=== PATIENT | female | born 1980 | race Hispanic/Latino ===

== ENCOUNTER 2020-12-04 09:00 | Inpatient (IN) | payer SELFPAY ==
[~2020-12-04] VITALS: Ht 162.6 cm; Wt 90.3 kg
[2020-12-04] MEDS ORDERED: METHYLPREDNISOLONE SOD SUCC 125MG/2ML VIAL ONE (09:24)
[2020-12-04] MEDS ORDERED: NITROGLYCERIN 0.4 MG SL TAB SL PRN (10:30)
[2020-12-04] MEDS ORDERED: GUAIFENESIN-DM 200/20 MG 10 ML PO PRN (10:30)
[2020-12-04] MEDS ORDERED: MAG HYDROX/AL HYDROX/SIMETH ES 30 ML SUSP UDCUP PO PRN (10:30)
[2020-12-04] MEDS ORDERED: ACETAMINOPHEN 325 MG TAB PO PRN ×2 (10:30)
[2020-12-04] MEDS ORDERED: LACTULOSE 20 GM/30 ML UDCUP PO PRN (10:30)
[2020-12-04] MEDS ORDERED: ONDANSETRON HCL 4 MG/2 ML VIAL IV PRN (10:30)
[2020-12-04] MEDS ORDERED: DIPHENHYDRAMINE HCL 25 MG CAPSULE PO PRN (10:30)
[2020-12-04] MEDS ORDERED: DiphenhydrAMINE HCL 50 MG/ML VIAL IV PRN (10:30)
[2020-12-04 10:31] LABS: BASOPHILS % (AUTO) 0.5 % (0.0-5.0); EOSINOPHILS % (AUTO) 0.7 % (0.0-8.0); HEMATOCRIT 35.2 % (36-48); LYMPHOCYTES % (AUTO) 30.7 % (21.0-51.0); MEAN CORPUSCULAR HEMOGLOBIN 28.2 pg (27.0-33.0); MEAN CORPUSCULAR HGB CONC 33.5 g/dL (32.0-36.0); MEAN CORPUSCULAR VOLUME 84.2 fL (79-99); MONOCYTES % (AUTO) 4.1 % (3.0-13.0); NEUTROPHILS % (AUTO) 63.7 % (40.0-77.0); PLATELET COUNT (AUTO) 366 K/uL (130-400); RED BLOOD CELL COUNT(AUTO) 4.18 MIL/uL (4.00-5.50); RED CELL DISTRIBUTION WIDTH 12.8 % (11.0-15.5); WHITE BLOOD COUNT (AUTO) 11.6 K/uL (4.8-10.8)
[2020-12-04 10:44] LABS: ALBUMIN 3.2 g/dL (3.5-5.0); BILIRUBIN,TOTAL 0.3 mg/dL (0.2-1.0); CREATININE 0.6 mg/dL (0.5-1.5); TOTAL PROTEIN, SERUM 7.4 g/dL (6.0-8.3)
[2020-12-04 10:54] LABS: APPEARANCE,URINE CLEAR (CLEAR); BILIRUBIN,URINE NEGATIVE (NEGATIVE); COLOR,URINE YELLOW (YELLOW); GLUCOSE, URINE (UA) NEGATIVE (NEGATIVE); KETONES,URINE NEGATIVE (NEGATIVE); LEUKOCYTE ESTERASE ,URINE NEGATIVE (NEGATIVE); NITRATE,URINE NEGATIVE (NEGATIVE); OCCULT BLOOD,URINE MODERATE (NEGATIVE); PROTEIN,URINE NEGATIVE (NEGATIVE); UROBILINOGEN,URINE 0.2 mg/dL (0.2-1.0)
[2020-12-04 11:01] LABS: BACTERIA,URINE None Seen /HPF (None Seen); SQUAMOUS EPITHELIAL CELL,UR 0-2 /HPF (0-2); WBC,URINE None Seen /HPF (0-1)
[2020-12-04 12:05] VITALS: BP 160/79
[2020-12-04] MEDS: IBUPROFEN 800 MG TAB PO SCH ×3 (13:15→21:19)
[2020-12-04 16:08] VITALS: BP 142/73
[2020-12-04] MEDS: MORPHINE SULFATE 2 MG/ML 1ML SYG IV PRN (17:36)
[2020-12-04 19:45] VITALS: BP 142/83
[2020-12-04] MEDS: FAMOTIDINE/PF 20 MG/2 ML VIAL IV SCH (21:18)
[2020-12-04 23:32] VITALS: BP 130/78
[2020-12-05] VITALS (21 sets, daily range): BP systolic 118–160; BP diastolic 66–85
[2020-12-05] MEDS: IBUPROFEN 800 MG TAB PO SCH ×4 (03:56→22:39)
[2020-12-05 06:09] LABS: BASOPHILS % (AUTO) 0.2 % (0.0-5.0); CREATININE 0.7 mg/dL (0.5-1.5); HEMATOCRIT 35.3 % (36-48); MEAN CORPUSCULAR HEMOGLOBIN 27.2 pg (27.0-33.0); MEAN CORPUSCULAR VOLUME 84.9 fL (79-99); MONOCYTES % (AUTO) 4.8 % (3.0-13.0); NEUTROPHILS % (AUTO) 77.5 % (40.0-77.0); PLATELET COUNT (AUTO) 380 K/uL (130-400); POTASSIUM 4.8 mmol/L (3.5-5.1); RED BLOOD CELL COUNT(AUTO) 4.16 MIL/uL (4.00-5.50); RED CELL DISTRIBUTION WIDTH 12.8 % (11.0-15.5); WHITE BLOOD COUNT (AUTO) 16.8 K/uL (4.8-10.8)
[2020-12-05] MEDS: FAMOTIDINE/PF 20 MG/2 ML VIAL IV SCH ×2 (10:54→19:42)
[2020-12-05] MEDS ORDERED: DEXAMETHASONE SOD PHOSPHATE 10MG/ML 1ML VIAL ONE (12:26)
[2020-12-05] MEDS ORDERED: GLYCOPYRROLATE 1 MG/5 ML SYRINGE ONE (12:26)
[2020-12-05] MEDS ORDERED: PROPOFOL 10 MG/ML 20ML VIAL IV ONE (12:26)
[2020-12-05] MEDS ORDERED: NEOSTIGMINE 5MG/5ML SYR IV ONE (12:26)
[2020-12-05] MEDS ORDERED: MIDAZOLAM HCL 1 MG/ML 2ML VIAL ONE (12:26)
[2020-12-05] MEDS ORDERED: SUCCINYLCHOLINE CHLORIDE 20 MG/ML 10 ML VIAL ONE (12:26)
[2020-12-05] MEDS ORDERED: ONDANSETRON HCL 4 MG/2 ML VIAL ONE (12:26)
[2020-12-05] MEDS ORDERED: LIDOCAINE PF 2% 5ML ABBOJECT ONE (12:26)
[2020-12-05] MEDS ORDERED: FENTANYL CITRATE PF 50 MCG/1 ML 2ML VIAL ONE ×2 (12:27→14:10)
[2020-12-05] MEDS ORDERED: ROCURONIUM 10MG/1ML SYR 10 MG/ML ML ONE (12:27)
[2020-12-05] MEDS ORDERED: ROPIVACAINE 0.5% 5MG/ML 30ML IJ ONE (13:12)
[2020-12-05] MEDS ORDERED: CEFAZOLIN SODIUM 1 GM VIAL ONE ×2 (13:54→14:16)
[2020-12-05] MEDS ORDERED: CEFAZOLIN SODIUM 1 GM VIAL IVP SCH (14:30)
[2020-12-05] MEDS ORDERED: MEPERIDINE-PF 25 MG/ML SYG ONE ×2 (15:38→15:59)
[2020-12-05] MEDS: MORPHINE SULFATE 2 MG/ML 1ML SYG IV PRN (17:07)
[2020-12-05] MEDS: CEFAZOLIN SODIUM 1 GM VIAL IVP SCH (19:42)
[2020-12-05] MEDS: KETOROLAC TROMETHAMINE 15MG/ML IV PRN (20:07)
[2020-12-06] MEDS: CEFAZOLIN SODIUM 1 GM VIAL IVP SCH (03:22)
[2020-12-06] MEDS: IBUPROFEN 800 MG TAB PO SCH ×4 (03:23→21:52)
[2020-12-06 04:07] VITALS: BP 118/78
[2020-12-06 04:50] LABS: BASOPHILS % (AUTO) 0.2 % (0.0-5.0); HEMATOCRIT 33.3 % (36-48); LYMPHOCYTES % (AUTO) 18.1 % (21.0-51.0); MEAN CORPUSCULAR HEMOGLOBIN 28.2 pg (27.0-33.0); MEAN CORPUSCULAR VOLUME 85.4 fL (79-99); MONOCYTES % (AUTO) 3.8 % (3.0-13.0); NEUTROPHILS % (AUTO) 77.5 % (40.0-77.0); PLATELET COUNT (AUTO) 360 K/uL (130-400); WHITE BLOOD COUNT (AUTO) 13.3 K/uL (4.8-10.8)
[2020-12-06 05:19] LABS: CREATININE 0.8 mg/dL (0.5-1.5); POTASSIUM 4.6 mmol/L (3.5-5.1)
[2020-12-06 08:00] VITALS: BP 118/61
[2020-12-06] MEDS ORDERED: KETOROLAC TROMETHAMINE 30MG/ML ONE (09:06)
[2020-12-06] MEDS: FAMOTIDINE/PF 20 MG/2 ML VIAL IV SCH ×2 (09:15→19:15)
[2020-12-06 12:00] VITALS: BP 136/72
[2020-12-06] MEDS: MORPHINE SULFATE 2 MG/ML 1ML SYG IV PRN (14:11)
[2020-12-06 16:00] VITALS: BP 146/89
[2020-12-06] MEDS: HYDROMORPHONE 1 MG/1 ML AMP IVP PRN ×2 (20:05→22:31)
[2020-12-06 20:14] VITALS: BP 127/66
[2020-12-06] MEDS: KETOROLAC TROMETHAMINE 15MG/ML IV PRN (21:53)
[2020-12-06 23:35] VITALS: BP 128/61
[2020-12-07] MEDS: HYDROMORPHONE 1 MG/1 ML AMP IVP PRN ×5 (00:09→04:23)
[2020-12-07] MEDS: IBUPROFEN 800 MG TAB PO SCH (04:06)
[2020-12-07 04:07] VITALS: BP 121/77
[2020-12-07 05:41] LABS: BASOPHILS % (AUTO) 0.3 % (0.0-5.0); EOSINOPHILS % (AUTO) 0.4 % (0.0-8.0); HEMATOCRIT 32.5 % (36-48); LYMPHOCYTES % (AUTO) 45.3 % (21.0-51.0); MEAN CORPUSCULAR HEMOGLOBIN 27.7 pg (27.0-33.0); MEAN CORPUSCULAR HGB CONC 32.3 g/dL (32.0-36.0); MEAN CORPUSCULAR VOLUME 85.8 fL (79-99); MONOCYTES % (AUTO) 6.9 % (3.0-13.0); NEUTROPHILS % (AUTO) 46.7 % (40.0-77.0); PLATELET COUNT (AUTO) 335 K/uL (130-400); RED BLOOD CELL COUNT(AUTO) 3.79 MIL/uL (4.00-5.50); RED CELL DISTRIBUTION WIDTH 13.2 % (11.0-15.5); WHITE BLOOD COUNT (AUTO) 14.5 K/uL (4.8-10.8)
[2020-12-07 05:47] LABS: CREATININE 0.9 mg/dL (0.5-1.5); POTASSIUM 4.3 mmol/L (3.5-5.1)
[2020-12-07 07:59] VITALS: BP 122/70
[2020-12-07] MEDS: FAMOTIDINE/PF 20 MG/2 ML VIAL IV SCH (10:23)
[2020-12-07] MEDS: KETOROLAC TROMETHAMINE 15MG/ML IV PRN (10:23)
[2020-12-07 11:39] VITALS: BP 131/71
[2020-12-07] MEDS ORDERED: FAMO20TA8 PO (13:52)
[2020-12-07] MEDS ORDERED: IBUP-2077 PO (13:52)
[2020-12-07 16:34] VITALS: BP 123/74
== END 2020-12-07 18:30 | disposition home or self-care (01) | DRG 464 ==
LOC: EDH 09:00 → EDHIP 09:01 → 3AH 11:47
PROVIDERS: ADMIT Family Medicine; ATTEND Family Medicine
PROC: 0SCD0ZZ Extirpation of Matter from Left Knee Joint, Open Approach (ICD-10-PCS; principal; 2020-12-05 13:45)
PROC: 0SPD0JZ Removal of Synthetic Substitute from Left Knee Joint, Open Approach (ICD-10-PCS; 2020-12-05 13:45)
DX: T84.093A Other mechanical complication of internal left knee prosthesis, initial encounter (principal); Z68.41 Body mass index [BMI] 40.0-44.9, adult; E11.9 Type 2 diabetes mellitus without complications; E66.9 Obesity, unspecified; I10 Essential (primary) hypertension; Y83.8 Other surgical procedures as the cause of abnormal reaction of the patient, or of later complication, without mention of misadventure at the time of the procedure; Y92.89 Other specified places as the place of occurrence of the external cause; S80.252A Superficial foreign body, left knee, initial encounter; X58.XXXA Exposure to other specified factors, initial encounter; Y93.89 Activity, other specified; Y99.8 Other external cause status
CPT/HCPCS: 36415; 73562; 73564; 73700; 80048; 80053; 81001; 84703; 85025; 93971; 97039; G0378; J0330; J0690; J1100; J1170; J1885; J2001; J2175; J2250; J2405; J2704; J2710; J2795; J2930; J3010; J3490; J7120